=== PATIENT | male | born 1965 | race Caucasian/White ===

== ENCOUNTER 2016-09-17 07:53 | Emergency (ER) | payer SELFPAY ==
[~2016-09-17] VITALS: Ht 188 cm; Wt 99.8 kg
[2016-09-17 08:54] VITALS: BP 129/84
[2016-09-17] MEDS ORDERED: KETOROLAC TROMETH 60MG/2ML VIAL IM ONE ×2 (09:45)
== END 2016-09-17 10:38 | disposition home or self-care (01) ==
LOC: ER 08:14
DX: S62.114A Nondisplaced fracture of triquetrum [cuneiform] bone, right wrist, initial encounter for closed fracture (principal); F17.210 Nicotine dependence, cigarettes, uncomplicated; W01.0XXA Fall on same level from slipping, tripping and stumbling without subsequent striking against object, initial encounter; Y93.01 Activity, walking, marching and hiking; Y92.481 Parking lot as the place of occurrence of the external cause; Y99.8 Other external cause status
CPT/HCPCS: 29125; 73110; 73130; 96372; 99284; J1885